=== PATIENT | male | born 1955 | race Caucasian/White ===

== ENCOUNTER 2021-07-24 04:20 | Day surgery (SDC) | payer OTHER ==
[2021-07-19 16:30] VITALS: BMI 37.3
[2021-07-24] MEDS ORDERED: MIDAZOLAM HCL 2 MG/2 ML SINGLE DOSE VIAL ONE (12:00)
[2021-07-24] MEDS ORDERED: GLYCOPYRROLATE 0.2 MG/1 ML VIAL ONE (12:00)
[2021-07-24] MEDS ORDERED: LIDOCAINE HCL/PF 2% SDV 5ML VIAL ONE (12:00)
[2021-07-24] MEDS ORDERED: PROPOFOL 20 ML ONE ×2 (12:00)
[2021-07-24] MEDS ORDERED: ACETAMINOPHEN 325 MG TABLET (FP) PO PRN (12:33)
[2021-07-24] MEDS ORDERED: ONDANSETRON 4 MG/2 ML VIAL IVPUSH PRN (12:33)
[2021-07-24] MEDS ORDERED: oxyCODONE HCL 5 MG TABLET PO PRN ×2 (12:33)
[2021-07-24] MEDS ORDERED: LACTATED RINGERS SOLUTION 1,000 ML IV SCH (12:45)
[2021-07-24 15:21] VITALS: BP 108/78; PULSE 64; TEMP 97.6
== END 2021-07-24 14:30 | disposition home or self-care (01) ==
LOC: JASU-SURG 04:20
PROVIDERS: ATTEND Urology
PROC: 0TF3XZZ Fragmentation in Right Kidney Pelvis, External Approach (ICD-10-PCS; principal; 2021-07-24 11:00)
DX: N20.0 Calculus of kidney (principal)

== ENCOUNTER 2021-12-25 04:17 | Day surgery (SDC) | payer OTHER ==
[2021-12-20 14:44] VITALS: BMI 33.9
[2021-12-25] MEDS ORDERED: PROPOFOL 20 ML ONE (07:49)
[2021-12-25] MEDS ORDERED: MIDAZOLAM HCL 2 MG/2 ML SINGLE DOSE VIAL ONE (07:49)
[2021-12-25] MEDS ORDERED: LIDOCAINE HCL/PF 2% SDV 5ML VIAL ONE (07:50)
[2021-12-25] MEDS ORDERED: KETOROLAC TROMETHAMINE 30 MG/1 ML VIAL ONE (07:58)
[2021-12-25 12:15] VITALS: BP 118/76; PULSE 57; TEMP 97.9
== END 2021-12-25 12:00 | disposition home or self-care (01) ==
LOC: JASU-SURG 04:17
PROVIDERS: ATTEND Urology
PROC: 0TF4XZZ Fragmentation in Left Kidney Pelvis, External Approach (ICD-10-PCS; principal; 2021-12-25 08:30)
DX: N20.0 Calculus of kidney (principal)